=== PATIENT | male | born 1965 | race Caucasian/White ===

== ENCOUNTER 2016-08-04 07:23 | Emergency (ER) | payer OTHER ==
[~2016-08-04] VITALS: Ht 182.9 cm; Wt 89.0 kg
[~2016-08-04 07:23] MED LIST: ASPIR 8181 M1 PO; OMEPRAZOLE40 M1 PO; SIMVASTATIN40 MG PO
[2016-08-04] MEDS ORDERED: VALIUM5 MG PO (08:31)
[2016-08-04] MEDS ORDERED: NAPROSYN500 MG PO (08:31)
[2016-08-04 08:50] VITALS: BP 146/96
== END 2016-08-04 08:51 | disposition home or self-care (01) ==
LOC: EME 07:23
DX: M54.12 Radiculopathy, cervical region (principal); M50.30 Other cervical disc degeneration, unspecified cervical region
CPT/HCPCS: 72125; 99281; 99283; J1885